=== PATIENT | male | born 1960 | race Caucasian/White ===

== ENCOUNTER 2020-12-21 16:02 | Observation (INO) | payer BC, SELFPAY ==
--- NOTE | ~2020-12-21 | CT_ITS ---
EXAMINATION: CT abdomen pelvis w con DATE: 12/21/2020 20:42 INDICATION: Jaundice. TECHNIQUE: Computed tomography (CT) of the abdomen and pelvis was performed with 100 mL Omnipaque 350 intravenous contrast. Automated exposure control and iterative reconstruction technique were employe d. The dose-length product was 396.95 mGy-cm. COMPARISON: None. FINDINGS: The visualized portions of the lung bases demonstrate mild atelectasis. No pleural effusion . The heart size is normal. No pericardial effusion. Paraesophageal varices are noted. The liver demo nstrates a nodular surface contour, consistent with cirrhosis. There is a paraumbilical portacaval sh unt. The gallbladder is normal in size. Gallbladder wall thickening is noted, likely secondary to chr onic liver disease and interstitial edema. There is splenomegaly measuring 17.6 cm. Calcifications in the spleen are consistent with old granulomatous disease. The pancreas, adrenal glands, and kidneys are normal. There are bilateral inguinal hernias containing fat. There are no dilated loops of bowel. There is mild wall thickening of some small bowel loops, likely interstitial edema. The appendix is normal. There is a large volume of ascites. There is mild periportal lymphadenopathy, likely reactive . There is severe lower lumbar spondylosis. IMPRESSION: 1. Cirrhosis of the liver with portal venous hypertension. 2. Large volume of ascites. Reviewed, dictated and finalized at location A.
[2020-12-21 19:23] VITALS: BP 142/77; PULSE 87; RESP 20; TEMP 36.3; O2SAT 94
[2020-12-21 19:46] LABS: Hematocrit 32.1 % (40.0-54.0); Hemoglobin 11.2 g/dL (14.0-18.0); Immature Platelet Fraction Pct 3.4 % (1.0-7.0); Mean Corpuscular HGB Conc 34.9 g/dL (32.0-36.0); Mean Corpuscular Hemoglobin 35.4 pg (27.0-31.0); Mean Corpuscular Volume 101.6 fL (78.0-102.0); Mean Platelet Volume 10.7 fl (8.7-11.0); Platelet Count Result 86 K/mm3 (150-420); Red Blood Count 3.16 M/mm3 (4.70-6.10); Red Cell Distribution Width 21.4 % (11.6-14.4); White Blood Count 7.6 K/mm3 (4.8-10.8)
[2020-12-21 19:57] LABS: Alanine Aminotransferase 50 U/L (16-63); Alkaline Phosphatase 153 U/L (46-116); Amylase 56 U/L (25-115); Anion Gap 12 mmol/L (8-16); Aspartate Amino Transferase 132 U/L (15-37); Bilirubin,Total 17.2 mg/dL (0.00-1.00); Blood Urea Nitrogen 20 mg/dL (7-18); Calcium 7.6 mg/dL (8.5-10.1); Carbon Dioxide 20 mmol/L (21-32); Chloride 102 mmol/L (98-108); Estimated CRCL calculation 92 ml/min; Estimated Glomerular Filt Rate > 60; Glucose 106 mg/dL (70-99); Lipase 266 U/L (73-393); Osmolality Calculated 280 mOsm/kg (285-295); Potassium 3.9 mmol/L (3.5-5.1)
[2020-12-21 19:59] LABS: Sodium 134 mmol/L (136-145)
[2020-12-21 20:02] LABS: Lactic Acid Reflex 1.5 mmol/L (0.4-2.0)
[2020-12-21 20:03] LABS: Band Neutrophils Percent 1 % (0-6); Basophils Percent Manual 0 % (0-1); Eosinophils Percent Manual 4 % (1-6); Lymphocytes Absolute Manual 1.52 K/mm3 (1.1-4.5); Lymphocytes Percent Manual 20 % (18-44); Monocytes Absolute Manual 1.44 K/mm3 (0.1-0.90); Monocytes Percent Manual 19 % (3-9); Neutrophils Absolute Manual 4.33 K/mm3 (1.3-6.7); Neutrophils Percent Manual 56 % (46-73); Platelet Estimate Decreased (Adequate); Total Cells Counted 100
--- NOTE | 2020-12-21 20:41 | ED.GENADULT ---
HPI - General Adult General Chief complaint: Abdominal Pain Stated complaint: Jandice and fatigue Time Seen by Provider: 12/21/20 19:20 Source: patient Mode of arrival: ambulatory Limitations: no limitations History of Present Illness HPI narrative: Patient comes in complains of being jaundiced. He states he has had some mild abdominal discomfort over the past few days. this has been dull and ongoing, not relieved by anything at home. Nothing known has precipitated this. It has been associated with constipation. According to the his complexion has been getting more and more yellow as time has gone on over several days, to the point now he is severely jaundiced. He has had associated poor appetite and itching. Onset (ago): day(s) Location: abdomen Radiation: non-radiation Severity: moderate Quality: dull, constant and other (mild) Pain Consistency: constant Relieving factors: none Exacerbating factors: none Associated symptoms: denies other symptoms Related Data Home Medications Medication Instructions Recorded Confirmed [id number]-[id number] 1 inh INHALATION DAILY 12/21/20 12/21/20 [Trelegy Ellipta] Allergies Allergy/AdvReac Type Severity Reaction Status Date / Time No Known Allergies Allergy Verified 12/21/20 19:22 Review of Systems Constitutional: Constitutional: Reports no additional constitutional complaints Eyes: Eyes: Reports no additional eye complaints ENT: Reports system reviewed and no additional complaints, except as documented Respiratory: Respiratory: Reports no additional respiratory complaints Gastrointestinal: Gastrointestinal: Reports no additional gastrointestinal complaints Genitourinary: Genitourinary: Reports no additional male genitourinary complaints Musculoskeletal: Musculoskeletal: Reports no additional musculoskeletal complaints Integumentary/Breasts: Skin/Breast: Reports system reviewed and no additional complaints, except as docu Neurologic: Reports system reviewed and no additional complaints, except as documented Psychiatric: Psychiatric: Reports no additional psychiatric complaints Endocrine: Endocrine: Reports no additional endocrine complaints Hematologic/Lymphatic: Hematologic/Lymphatic: Reports no additional hematologic/lymphatic complaints Allergic/Immunologic: Allergic/Immunologic: Reports no additional allergic/immunologic complaints [facility] Past Medical History Medical History (Updated 12/21/20 @ 22:27 by Reed Quinones MD) COPD (chronic obstructive pulmonary disease) Surgical History Surgical History (Updated 12/21/20 @ 20:45 by Reed Quinones MD) No significant past surgical history Family History Family History (Updated 12/21/20 @ 20:45 by Reed Quinones MD) Other Family history non-contributory Social History Social History (Updated 12/21/20 @ 20:50 by Reed Quinones MD) Smoking status: Former smoker Tobacco type: cigarettes Alcohol intake: current Alcohol use details: 12 pack beer per day Living arrangements: with family Gender identity (if verbalized by the patient): Male Sexual Orientation (if Verbalized by the Patient): Straight or Heterosexual Exam Const: General: no acute distress Orientation/consciousness: patient oriented x3 HENMT: Head: normal to inspection Ears: external ears normal and TM's normal bilaterally General nose exam: Normal external nose present Mouth: Yes Normal oral and palatal mucosa present Throat: posterior oropharynx normal Eyes: Other: jaundice noticed Neck: Neck: normal visual inspection and no lymphadenopathy Chest: Chest palpation & inspection: normal inspection of the chest Resp: Effort & Inspection: normal respiratory effort Auscultation: clear to auscultation bilaterally Cardio: Rate: regular rate Rhythm: regular rhythm GI: GI Palp: Yes Soft to palpation (nontender) Other: He appears to have at least some ascites present. Back/Spine/Pelvis:
[2020-12-21 21:02] LABS: Bilirubin Direct 11.8 mg/dL (0-0.2)
--- NOTE | 2020-12-21 22:30 | PC.NURSE ---
ERP discussed case c pt and family and will try to transfer to [facility]. 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
[2020-12-21 23:42] VITALS: BP 129/77; PULSE 75; RESP 20; TEMP 36.3; O2SAT 98
--- NOTE | 2020-12-22 00:19 | PC.NURSE ---
Pt. will be made ER Hold until bed is available for transfer to [facility]. Pt. has been accepted by Dr. Gabriel at [facility]. Call placed to 2nd floor and report given to UTE Damon Pt. going to Rm 203 until bed available at [facility].
[2020-12-22 00:45] VITALS: BP 132/73; PULSE 74; RESP 20; TEMP 36.8; O2SAT 95
--- NOTE | 2020-12-22 00:55 | PC.NURSE ---
Pt to 203B as an ER hold for services of the hospitalist. Pt is awaiting transfer to [facility] in [place], [place]. Pt is alert and oriented x4 and is ambulatory per self; Pt doesnt voice any c/o pain or discomfort or shortness of breath at this time. Side rails up x2 and call garcia within reach.
--- NOTE | 2020-12-22 01:30 | PC.NURSE ---
Pt's , Rosi Bacon, called and asked if her was in a room yet. She was given his room number and an update on his condition.
--- NOTE | 2020-12-22 02:10 | PC.NURSE ---
Pt asleep and no signs of discomfort noted.
--- NOTE | 2020-12-22 04:01 | PC.NURSE ---
Pt asleep and no signs of discomfort noted
--- NOTE | 2020-12-22 06:15 | PC.NURSE ---
Pt asleep and no signs of discomfort noted.
[2020-12-22 07:36] VITALS: BP 111/65; PULSE 89; RESP 16; TEMP 37.4; O2SAT 94
--- NOTE | 2020-12-22 07:38 | PC.NURSE ---
Patient resting comfortably in bed at this time. Vitals obtained and WNL except a low grade fever noted.
[2020-12-22 07:40] LABS: Add Urine Microscopic? YES; Appearance Urine Clear (Clear); Bilirubin Urine 3+ (Negative); Blood Urine Negative (Negative); Glucose Urine UA Trace (Negative); Ketones Urine Negative (Negative); Leukocyte Esterase Ur Negative LEU/UL (Negative); Nitrate Urine Negative (Negative); Protein Urine Negative (Negative); Specific Grav Ur 1.015 (1.010-1.020)
[2020-12-22 08:00] VITALS: BP 111/65; PULSE 89; RESP 16; TEMP 37.4; O2SAT 94
[2020-12-22 08:09] LABS: RBC Urine 0-2 /hpf (0-2); WBC Urine 0-3 /hpf (0-3)
[2020-12-22 08:10] LABS: Bacteria Urine 1+ /hpf; Color Urine Amber (Yellow); Squamous Epithelial Cell Urine Rare /hpf (Few)
--- NOTE | 2020-12-22 09:09 | PC.NURSE ---
UA has been obtained with abnormal results pending physicians review and new orders.
--- NOTE | 2020-12-22 10:35 | PCDIET ---
Patient admitted to observation bed from ER Hold.
[2020-12-22 10:36] VITALS: BMI 24.5
[2020-12-22 10:37] VITALS: PULSE 89; RESP 16; O2SAT 94
--- NOTE | 2020-12-22 10:40 | P.PNCROSS_ITS ---
Event Note Event Note Event Note: this is a 60-year-old male that was in ER hold overnight the patient was assessed this morning, apparently there is no beds available at [facility] in [place]. The patient appears stable his belly is soft with some abdominal pain is improved, with no nausea or vomiting no fever chills. Will change status to inpatient observation and orders given.
[2020-12-22 11:26] VITALS: PULSE 89
[2020-12-22] MEDS: METOPROLOL SUCCINATE EXT REL 25 MG TABCR PO (11:26)
[2020-12-22] MEDS: MULTIVITAMINS-12 INJ VIAL 1 5 ML, MULTIVITAMINS-12 INJ VIAL 2 5 ML in SODIUM CHLORIDE 0... 100 ML IV CONT (11:26)
[2020-12-22] MEDS: SPIRONOLACTONE 25 MG TABLET PO (11:27)
[2020-12-22] MEDS: THIAMINE HCL 100 MG TABLET PO (11:27)
[2020-12-22] MEDS: ENOXAPARIN 40 MG/0.4 ML SYRINGE SUB-Q (11:27)
[2020-12-22 13:16] LABS: Albumin Level 2.1 g/dL (3.4-5.0)
--- NOTE | 2020-12-22 14:51 | PM.SD2 ---
Same Day Admit/Disch: HPI History of Present Illness Chief complaint: ASCITES Narrative: Aydin Osoiro is a 60 year old male that presented to our ED with jaundice. Patient has a past medical history of COPD. According to family member patient skin color became yellow in approximately May. Patient does have a history of daily alcohol use according to patient he drinks 12 pack of beer a day. He has never been diagnosed with cirrhosis. Patient has not had any other symptoms. Patient notes that he has had a distended abdomen for quite some time now. Patient WBC 7.6, hemoglobin 11.2, hematocrit 32.1, platelets 86, sodium 134, potassium 3.9 BUN 20, creatinine 0.83 glucose 106, lactic acid 1.5 total bili 17.2, direct bili 11.8, AST 132, ALT 50 alkaline phosphatase 153, protein 6.0, albumin 2.0 amylase and lipase within normal limit. Temperature 99.3, 89, 16, 94% on room air, 111/65. CT of the abdomen indicate cirrhosis of the liver with portal venous hypertension and large volume of ascites. Ultrasound was ordered along with IR for diagnostic and therapeutic of ascites. Patient has been admitted from outside hospital he was being transferred there so that he can be consulted by GI for possible ERCP. patient is being transferred to [facility] per patient request. Patient did note that he had been experiencing shortness of breath for quite some time and was being treated for COPD possible cause of shortness of breath could possibly be ascites Disposition: Transfer to an acute hospital per family request [facility] Observation 60 minutes spent PMF Past Medical History Medical History (Updated 12/22/20 @ 15:06 by LIYAH Gooden) COPD (chronic obstructive pulmonary disease) Surgical History Surgical History (Updated 12/21/20 @ 20:45 by Reed Quinones MD) No significant past surgical history Family History Family History (Updated 12/21/20 @ 20:45 by Reed Quinones MD) Other Family history non-contributory Social History Social History (Updated 12/21/20 @ 20:50 by Reed Quinones MD) Smoking status: Former smoker Tobacco type: cigarettes and e-cigarettes/vaping Second hand tobacco smoke exposure: Yes Alcohol intake: current Drinks per week: 84 Alcohol use details: 12 pack beer per day Substance use: former Substance use type: marijuana Living arrangements: with family Gender identity (if verbalized by the patient): Male Sexual Orientation (if Verbalized by the Patient): Straight or Heterosexual Spiritual care concerns: No Same Day Admit/Disch: Med Pre-admit Medications Home Medications Medication Instructions Recorded Confirmed Type Tracie Hernández 1 inh INHALATION DAILY 12/21/20 12/21/20 History Exam Narrative: Exam Narrative: GENERAL: This is a well-nourished, well-developed patient, in no apparent distress. HEAD: normocephalic, atraumatic. EYES: PERRL. Sclera clear/white. Vision is grossly intact. EARS: External ears normal, auditory canals clear and without drainage, TMs normal without perforation. Hearing grossly intact. NOSE: External nose normal with no obvious nasal discharge, nares without redness, no rhinorrhea. THROAT: Mucous membranes moist, posterior pharynx clear. NECK: Neck supple, non-tender without lymphadenopathy, masses or thyromegaly. CARDIOVASCULAR: Regular rate and rhythm without murmurs, gallops, or rubs. RESPIRATORY: Clear to auscultation. Breath sounds equal bilaterally. No wheezes, rales, or rhonchi. GASTROINTESTINAL: Abdomen distended with fluid wave. Bowel sounds are active. No hepato-splenomegaly, or palpable masses. No guarding. SKIN: warm, intact with no suspicious lesions or rash, good texture and turgor. Generalized jaundice NEURO: awake, alert, and oriented to person, place and time. There were no obvious focal neurologic abnormalities. Steady gait EXTREMITIES: Normal range of motion. No edema. No calf t
[2020-12-22 15:28] LABS: SARS-CoV-2 Ag Negative (Negative)
--- NOTE | 2020-12-22 16:15 | PC.NURSE ---
Patient transported to [facility] by [facility] ambulance
[2020-12-24 19:46] LABS: Haptoglobin 23 mg/dL (43-212)
== END 2020-12-22 16:15 | disposition short-term general hospital (02) ==
LOC: CHSED 22:27 → CHS2ND 12-22 00:17 → CHSED 12-22 10:47 → CHS2ND 12-22 10:48
PROVIDERS: Admitting Provider Emergency Medicine; Emergency Provider Emergency Medicine; PCP Family Medicine; Visit Provider Nurse Practitioner
DX: K80.50 Calculus of bile duct without cholangitis or cholecystitis without obstruction (principal); K70.31 Alcoholic cirrhosis of liver with ascites; K76.6 Portal hypertension; J44.9 Chronic obstructive pulmonary disease, unspecified; Z72.89 Other problems related to lifestyle
CPT/HCPCS: 36415; 74177; 80053; 81001; 82040; 82150; 82248; 83010; 83605; 83690; 85025; 85055; 87040; 87426; 96365; 96366; 96372; 99285; A9270; C9803; G0378; G0379; J1650; J7030; Q9967

== ENCOUNTER 2021-11-17 08:58 | Emergency (ER) | payer BC, SELFPAY ==
[2021-11-17] VITALS (7 sets, daily range): BP systolic 120–125; BP diastolic 76–89; PULSE 64–80; RESP 16–20; TEMP 36.3–36.6; O2SAT 91–98
--- NOTE | ~2021-11-17 | CT_ITS ---
EXAMINATION: CT chest abdomen pelvis wo con DATE: 11/17/2021 10:34 INDICATION: Abdominal distention TECHNIQUE: Transaxial computed tomographic images of the chest, abdomen, and pelvis were obtained wit hout intravenous contrast. The dose-length product (DLP) was 1140.92 mGy-cm. Automated exposure contr ol and iterative reconstruction technique were employed. COMPARISON: 12/21/2020 FINDINGS: CHEST CT: There is mild emphysema. There is a 5 mm nodule of the right upper lobe. Multiple additional smaller nodules are identified which measure up to 4 mm. There is no pleural effusion or pneumothorax. Bilate ral gynecomastia is noted. No pathologically enlarged thoracic lymph nodes are identified. The heart size is normal. There is calcified coronary artery atherosclerosis. ABDOMEN/PELVIS CT: There is nodularity of the liver surface, consistent with cirrhosis. There is a large volume of abdom inal and pelvic ascites. Punctate calcifications in an otherwise normal spleen likely represent heale d granulomatous disease. The pancreas, gallbladder and adrenal glands are normal. Kidneys are unremar kable. Mild periportal lymphadenopathy is likely reactive. There is no free intraperitoneal gas or ev idence of bowel obstruction. There is mild lumbar spondylosis. There is a moderate size right inguina l hernia containing ascites. IMPRESSION: 1. Large volume of abdominal and pelvic ascites. 2. Cirrhosis. 3. Multiple nodules of the lungs measuring up to 5 mm. Consider follow-up CT in 12 months. Reviewed, dictated and finalized at location A.
--- NOTE | 2021-11-17 09:36 | ECG_ITS ---
Measurements Intervals [place] Rate: 67 P: 52 RI: 157 QRS: 7 QRSD: 94 T: 6 QT: 406 QTc: 431 Interpretive Statements SINUS RHYTHM BORDERLINE T WAVE ABNORMALITY- INFERIOR LEADS BASELINE ARTIFACT- I, II, III, AVR, AVL, V2 BORDERLINE ECG Electronically Signed On 11-17-2021 10:07:07 CDT by Trent Rider D.O.
[2021-11-17] MEDS: IPRATROPIUM 0.5 MG/ALBUTEROL SULFATE 2.5 MG AMPUL.NEB 3 ML INHALATION (09:57)
[2021-11-17] MEDS: methylPREDNISolone SOD SUCC 125 MG VIAL IV PUSH (10:02)
[2021-11-17] MEDS: FUROSEMIDE INJ 40 MG/4 ML VIAL 80 MG IV PUSH (10:03)
[2021-11-17 10:07] LABS: Base Excess ABG -2.1 mmol/L (0-2); HCO3 ABG 19.1 mmol/L (23-29); Oxygen Content ABG 17.9 %vol (16.0-22.0); Oxygen Saturation ABG 90.2 % (95-97); Oxyhemoglobin 89.5 % (94-100); PCO2 ABG 24.6 mmHg (35-45); PO2 ABG 58.9 mmHg (80-90); Total Hemoglobin 14.2 g/dL (12.0-18.0); pH ABG 7.51 (7.35-7.45)
[2021-11-17 10:08] LABS: Site Drawn LEFT RADIAL
--- NOTE | 2021-11-17 10:08 | ED.SOB ---
HPI - SOB/Dyspnea General Chief Complaint: Shortness of Breath/Dyspnea Stated Complaint: SOB Time Seen by Provider: 11/17/21 09:00 Source: patient and RN notes reviewed Mode of arrival: ambulatory Limitations: no limitations History of Present Illness MD elicited complaint: shortness of breath Pertinent past history: COPD and other (alcoholic liver cirrhosis with ascites.) Onset (ago): day(s) (1) Context: occurred during exertion Timing: constant Severity: mild (SOB especially on exertion.) Exacerbating factors: exertion Relieving factors: rest Known history of: COPD Associated symptoms: denies other symptoms Treatment prior to arrival: none Related Data Home oxygen amount: none Home Medications Medication Instructions Recorded Confirmed folic acid 1 mg tablet 1 mg PO DAILY 11/17/21 11/17/21 furosemide 40 mg tablet 40 mg PO QAM 11/17/21 11/17/21 garlic 1,000 mg capsule 1,000 mg PO DAILY 11/17/21 11/17/21 nadolol 20 mg tablet 20 mg PO ONCE 11/17/21 11/17/21 pantoprazole 40 mg tablet,delayed 40 mg PO BID tablet 11/17/21 11/17/21 release potassium 99 mg tablet 99 mg PO BID tablet 11/17/21 11/17/21 thiamine HCl (vitamin B1) 100 mg 50 mg PO DAILY 11/17/21 11/17/21 tablet Allergies Allergy/AdvReac Type Severity Reaction Status Date / Time No Known Allergies Allergy Verified 11/17/21 09:16 Review of Systems Review of Systems: All systems reviewed & are unremarkable except as noted in HPI and below PMFSH Past Medical History Medical History Cirrhosis COPD (chronic obstructive pulmonary disease) COPD (chronic obstructive pulmonary disease) Surgical History Surgical History No significant past surgical history Family History Family History Other Family history non-contributory Social History Social History Smoking status: Former smoker Tobacco type: cigarettes and e-cigarettes/vaping Second hand tobacco smoke exposure: Yes Additional smoking assessment comments: Currently Vapes. Quit cigarettes 2016. Aprox 40pk yr history Alcohol intake: former Drinks per week: 84 Alcohol use details: 12 pack beer per day. Quit alcohol October 2020. Substance use: former Substance use type: marijuana Exam Const: General: no acute distress and alert Nutritional Appearance: well nourished Orientation/consciousness: patient oriented x3 Limitations: no limitations HENMT: Head: normal to inspection Ears: external ears normal, TM's normal bilaterally and EAC's normal General nose exam: Normal external nose present and Normal nares present Face and sinus: normal facial exam and sinuses nontender Mouth: Yes moist mucous membranes Throat: posterior oropharynx normal Eyes: Conjunctivae: conjunctivae normal Pupils: Equal, round and reactive pupils present EOM: EOMs intact bilaterally Neck: Neck: normal visual inspection and no lymphadenopathy Chest: Chest palpation & inspection: normal inspection of the chest Resp: Effort & Inspection: normal respiratory effort Auscultation: rhonchi Cardio: Rate: regular rate Rhythm: regular rhythm GI: Inspection: distended GI Palp: Yes Soft to palpation and No Tenderness to palpation present (GI) Auscultation: normal bowel sounds (distant) : General: Yes bladder normal to palpation and Yes no CVA tenderness Male General Exam: Yes normal external exam Testes: Testes normal Back/Spine/Pelvis: Back: no CVA tenderness Skin: General skin exam: normal color and jaundice Rashes: no rashes Neuro: General: patient oriented x3, moves all extremities, no meningeal signs, no focal motor deficits and CN's II-XI intact bilaterally Extrem: General: normal to inspection and no pedal edema Psych: Mental Status: mental status grossly norm
[2021-11-17 10:09] LABS: Device ROOM AIR; Modified Allen's Test Pass
[2021-11-17 10:11] LABS: Basophils Absolute Auto 0.06 K/mm3 (0.00-0.10); Basophils Percent Auto 1.1 % (0.0-1.0); Eosinophils Absolute Auto 0.28 K/mm3 (0.02-0.50); Hematocrit 40.3 % (40.0-54.0); Hemoglobin 13.4 g/dL (14.0-18.0); Immature Granulocyte Absolute 0.01 K/mm3 (0.00-0.00); Immature Granulocyte Percent A 0.2 % (0.0-0.0); Immature Platelet Fraction Pct 2.9 % (1.0-7.0); Lymphocytes Absolute Auto 1.99 K/mm3 (1.10-4.50); Lymphocytes Percent Auto 35.3 % (18.0-42.0); Mean Corpuscular HGB Conc 33.3 g/dL (32.0-36.0); Mean Corpuscular Hemoglobin 33.4 pg (27.0-31.0); Mean Corpuscular Volume 100.5 fL (78.0-102.0); Mean Platelet Volume 10.9 fl (8.7-11.0); Neutrophils Absolute Auto 2.4 K/mm3 (1.7-7.2); Neutrophils Percent Auto 42.4 % (50.0-70.0); Platelet Count Result 76 K/mm3 (150-420); Red Blood Count 4.01 M/mm3 (4.70-6.10); Red Cell Distribution Width 16.8 % (11.6-14.4); White Blood Count 5.6 K/mm3 (4.8-10.8)
[2021-11-17 10:24] LABS: INR 1.4; Partial Thromboplastin Time 31.4 SEC (23.90-30.70); Prothrombin Time 14.6 Seconds (9.50-12.10)
[2021-11-17 10:37] LABS: Alanine Aminotransferase 105 U/L (16-63); Albumin Level 2.2 g/dL (3.4-5.0); Alkaline Phosphatase 146 U/L (46-116); Anion Gap 6 mmol/L (8-16); Aspartate Amino Transferase 192 U/L (15-37); Bilirubin,Total 6.1 mg/dL (0.00-1.00); Blood Urea Nitrogen 17 mg/dL (7-18); Calcium 7.8 mg/dL (8.5-10.1); Carbon Dioxide 24 mmol/L (21-32); Chloride 106 mmol/L (98-108); Estimated CRCL calculation 82 ml/min; Estimated Glomerular Filt Rate > 60; Glucose 94 mg/dL (70-99); Osmolality Calculated 283 mOsm/kg (285-295); Potassium 3.7 mmol/L (3.5-5.1); Sodium 136 mmol/L (136-145); Total Protein 5.9 g/dL (6.4-8.2)
[2021-11-17 10:39] LABS: NT Pro B Type Natriuretic Pept 63 pg/mL (0-125); Troponin I 9.9 ng/L (0.00-60.4)
[2021-11-17 10:45] LABS: Add Urine Microscopic? YES; Appearance Urine Clear (Clear); Bilirubin Urine Negative (Negative); Blood Urine Negative (Negative); Color Urine Yellow (Yellow); Glucose Urine UA Negative (Negative); Ketones Urine Negative (Negative); Leukocyte Esterase Ur Negative LEU/UL (Negative); Nitrate Urine Negative (Negative); Protein Urine Negative (Negative)
[2021-11-17 10:50] LABS: Bacteria Urine None seen /hpf; RBC Urine None seen /hpf (0-2); Squamous Epithelial Cell Urine Rare /hpf (Few); WBC Urine None seen /hpf (0-3)
[2021-11-17 10:54] LABS: Amphetamine Screen Urine Negative (Negative); Barbiturate Screen Urine Negative (Negative); Benzodiazepines Screen Urine Negative (Negative); Cannabinoid Screen Urine Negative (Negative); Cocaine Screen Urine Negative (Negative); Methadone Screen Urine Negative (Negative); Opiate Screen Urine Negative (Negative); Phencyclidine Screen Urine Negative (Negative)
--- NOTE | 2021-11-17 11:30 | PC.NURSE ---
resp even and non-labored at this time. no change in monitor pattern. family at bedside.
[2021-11-17] MEDS: CALCIUM CARBONATE (TUMS) 500 MG (200 MG ELEMENTAL) 1000 MG PO (13:13)
== END 2021-11-17 13:16 | disposition home or self-care (01) ==
PROVIDERS: Emergency Provider Emergency Medicine; PCP Family Medicine
DX: K70.31 Alcoholic cirrhosis of liver with ascites (principal); J44.1 Chronic obstructive pulmonary disease with (acute) exacerbation
CPT/HCPCS: 36415; 36600; 71250; 74176; 80053; 80307; 81001; 82805; 83735; 83880; 84484; 85025; 85055; 85610; 85730; 93005; 94640; 96374; 96375; 99284; A9270; J1940; J2930

== ENCOUNTER 2021-11-18 13:38 | Outpatient (CLI) | payer BC, SELFPAY ==
--- NOTE | ~2021-11-18 | US_ITS ---
US paracentesis abd w/image DATE: 11/18/2021 14:42 INDICATION: Ascites TECHNIQUE: The purpose of the procedure, technique and potential locations were discussed with the jag bird. The patient indicated understanding and gave consent. An appropriate site for percutaneous access was identified along the lateral left mid abdomen. The sk in was prepared with sterile Betadine solution. Sterile drape was applied. 1% lidocaine local anesthe tic was administered to the skin and underlying subcutaneous tissues. Single stick needle/catheter was introduced proxy 3 cm into the peritoneal cavity, with return of beni ar yellowish ascites at the needle hub. The catheter was then advanced over the needle and the needle withdrawn. Approximately 2.5 L was drained caliber of the catheter periodically became obstructed apparently by interfering to bowel. The technologist indicated that the catheter became withdrawn when she try to r eposition the patient for better drainage through the catheter. I then again cleaned the same area of the left lateral abdominal wall with sterile Betadine, readmini stered 1% lidocaine local anesthetic and introduced another single stick needle/catheter, again yield ing clear yellowish ascites the hub. The catheter was then advanced over the needle and the needle wi thdrawn. An additional 2.5 L of clear yellowish ascites was drained uneventfully. The patient tolerated the procedure well, without complaint or apparent complication. IMPRESSION: Percutaneous ultrasound-guided drainage of 5 L of clear yellowish ascites Reviewed, dictated and finalized at Location A. Reviewed, dictated and finalized at location A. IMPRESSION: Percutaneous ultrasound-guided drainage of 5 L of clear yellowish a scites
== END 2021-11-18 13:39 | disposition home or self-care (01) ==
LOC: CHSIMG 13:41
PROVIDERS: PCP Family Medicine; Visit Provider Emergency Medicine
DX: R18.8 Other ascites (principal)
CPT/HCPCS: 49083

== ENCOUNTER 2021-11-19 09:05 | Emergency (ER) | payer BC, SELFPAY ==
[2021-11-19] VITALS (57 sets, daily range): BP systolic 98–140; BP diastolic 66–90; PULSE 66–88; RESP 14–20; TEMP 36.1–36.4; O2SAT 97–100
--- NOTE | ~2021-11-19 | CT_ITS ---
EXAMINATION: CT brain wo con DATE: 11/19/2021 09:24 INDICATION: Unresponsive TECHNIQUE: Computed tomography (CT) of the head was performed without intravenous contrast. Sagittal and coronal reconstructions were performed. The mA was adjusted according to patient size. Iterative reconstruction technique was employed. The dose-length product was 681.00 mGy-cm. COMPARISON: None FINDINGS: No acute intracranial hemorrhage, acute infarction or abnormal extra axial fluid collection. Ventricl es are normal and symmetric. No mass/mass effect. The left maxillary sinuses small and completely opa cified suggesting sequela of chronic sinusitis. 1 mm step-off at the chronic appearing fracture of th e right nasal bone with no provided clinical history or overlying soft tissue swelling to suggest acu te injury. The orbits and mastoid air cells are normal. IMPRESSION: 1. Normal brain. No acute intracranial process. Reviewed, dictated and finalized at location A.
--- NOTE | ~2021-11-19 | XR_ITS ---
EXAMINATION: XR chest ET placement INDICATION: Endotracheal tube placement TECHNIQUE: Portable AP chest at 1036 hours COMPARISON: 1005 hours FINDINGS: An endotracheal tube ends approximately 3.1 cm above the corky. The lungs are free of acut e opacities. There is no pleural effusion or pneumothorax. The cardiomediastinal silhouette is normal . IMPRESSION: 1. Endotracheal tube approximately 3.1 cm above the corky. Reviewed, dictated and finalized at location B.
--- NOTE | ~2021-11-19 | XR_ITS ---
EXAMINATION: XR chest ET placement DATE: 11/19/2021 09:47 INDICATION: Endotracheal tube placement. TECHNIQUE: frontal view of the chest was obtained. COMPARISON: Chest radiograph dated 11/19/2021 FINDINGS: Endotracheal tube with inflated bulb projecting to the left of the trachea likely within the esophagu s with the distal tip at the level of the thoracic inlet. Lungs are clear with no focal airspace opac ities, pulmonary edema, pleural effusion or pneumothorax. The cardiomediastinal silhouette is normal. Visualized bones and soft tissues are unremarkable. IMPRESSION: 1. Endotracheal tube tip at the level of the thoracic inlet to the left the trachea likely within the esophagus. Per discussion with the nurse in the ED department the tube has already been withdrawn an d is in the process of being replaced. 2. No acute cardiopulmonary disease. Reviewed, dictated and finalized at location A. IMPRESSION: 1. Endotracheal tube tip at the level of the thoracic inlet to the left the tra sridevi likely within the esophagus. Per discussion with the nurse in the ED depar tment the tube has already been withdrawn and is in the process of being replac ed. 2. No acute cardiopulmonary disease.
--- NOTE | ~2021-11-19 | XR_ITS ---
EXAMINATION: XR chest 1V portable INDICATION: Altered mental status TECHNIQUE: Portable AP chest at 0931 hours COMPARISON: None available FINDINGS: The lungs are free of acute opacities. There is no pleural effusion or pneumothorax. The ca rdiomediastinal silhouette is normal. IMPRESSION: 1. No acute cardiopulmonary abnormality. Reviewed, dictated and finalized at location B.
--- NOTE | ~2021-11-19 | XR_ITS ---
EXAMINATION: XR chest ET placement, XR abdomen NG/feed tube insert DATE: 11/19/2021 10:08 INDICATION: Endotracheal tube and nasogastric tube placement TECHNIQUE: 1. Interval AP view of the chest was obtained. 2. Portable AP view of the abdomen was obtained. COMPARISON: Chest radiograph dated 11/19/2021 at 9:48 AM FINDINGS: Chest: The trachea is visualized to the region of normal subglottic narrowing with no visualized endotrachea l tube. Mild streaky opacities in the medial left lower lung zone. No pulmonary edema, pleural effusi on or pneumothorax. Cardiomediastinal silhouette is normal. Abdomen: Nasogastric tube with tip in proximal side port in the body of the stomach. There are multiple gas-f illed but not frankly dilated loops of large and small bowel in the visualized abdomen. IMPRESSION: 1. No endotracheal tube visualized. Per discussion with the nurse, poor tidal volumes are being obtai mitchel via the tube and would recommend withdrawal and repositioning. 2. Nasogastric tube in expected position within the stomach. 3. Opacities in the medial left lower lung zone which could represent atelectasis, aspiration or pneu monia. Reviewed, dictated and finalized at location A. IMPRESSION: 1. No endotracheal tube visualized. Per discussion with the nurse, poor tidal v olumes are being obtained via the tube and would recommend withdrawal and repos itioning. 2. Nasogastric tube in expected position within the stomach. 3. Opacities in the medial left lower lung zone which could represent atelectas is, aspiration or pneumonia.
[2021-11-19] MEDS: NALOXONE HCL INJ 2 MG/2 ML AMP IV PUSH (09:10)
--- NOTE | 2021-11-19 09:14 | ECG_ITS ---
Measurements Intervals [place] Rate: 79 P: 75 TN: 157 QRS: 49 QRSD: 106 T: 47 QT: 387 QTc: 446 Interpretive Statements SINUS RHYTHM BASELINE ARTIFACT- III, V1, V3 NORMAL ECG Electronically Signed On 11-19-2021 12:34:45 CDT by Trent Rider D.O.
[2021-11-19 09:20] LABS: Base Excess ABG -1.9 mmol/L (0-2); HCO3 ABG 19.7 mmol/L (23-29); Oxygen Content ABG 18.9 %vol (16.0-22.0); Oxygen Saturation ABG 93.2 % (95-97); Oxyhemoglobin 92.5 % (94-100); PCO2 ABG 26.1 mmHg (35-45); PO2 ABG 68.6 mmHg (80-90); Total Hemoglobin 14.5 g/dL (12.0-18.0)
[2021-11-19 09:22] LABS: Modified Allen's Test Pass; Site Drawn RIGHT RADIAL
[2021-11-19 09:23] LABS: Device NASAL CANNULA
[2021-11-19 09:28] LABS: Basophils Absolute Auto 0.03 K/mm3 (0.00-0.10); Basophils Percent Auto 0.4 % (0.0-1.0); Eosinophils Absolute Auto 0.18 K/mm3 (0.02-0.50); Eosinophils Percent Auto 2.4 % (1.0-6.0); Hematocrit 41.6 % (40.0-54.0); Hemoglobin 13.5 g/dL (14.0-18.0); Immature Granulocyte Absolute 0.03 K/mm3 (0.00-0.00); Immature Granulocyte Percent A 0.4 % (0.0-0.0); Immature Platelet Fraction Pct 3.6 % (1.0-7.0); Lymphocytes Absolute Auto 2.18 K/mm3 (1.10-4.50); Lymphocytes Percent Auto 29.4 % (18.0-42.0); Mean Corpuscular HGB Conc 32.5 g/dL (32.0-36.0); Mean Corpuscular Hemoglobin 33.1 pg (27.0-31.0); Mean Platelet Volume 10.9 fl (8.7-11.0); Monocytes Absolute Auto 0.85 K/mm3 (0.10-0.90); Monocytes Percent Auto 11.5 % (2.0-11.0); Neutrophils Absolute Auto 4.1 K/mm3 (1.7-7.2); Neutrophils Percent Auto 55.9 % (50.0-70.0); Platelet Count Result 81 K/mm3 (150-420); Red Blood Count 4.08 M/mm3 (4.70-6.10)
--- NOTE | 2021-11-19 09:30 | PC.NURSE ---
prior to arrival, patient's blood glucose was 76. patient was adnimistered a 250ml bag d10. patient's mental status didnt change with fluids.
[2021-11-19 09:35] LABS: White Blood Count 7.4 K/mm3 (4.8-10.8)
[2021-11-19 09:36] LABS: INR 1.5; Prothrombin Time 15.3 Seconds (9.50-12.10)
[2021-11-19] MEDS: ETOMIDATE 20 MG/10 ML AMPUL (09:36)
[2021-11-19] MEDS: SUCCINYLCHOLINE CHLORIDE 200 MG/10 ML SYRINGE ×3 (09:36→11:35)
[2021-11-19 09:40] LABS: Lactic Acid Reflex 2.2 mmol/L (0.4-2.0)
[2021-11-19] MEDS: SODIUM CHLORIDE 0.9% IV 1,000 ML 999 ML IV CONT ×2 (09:40→13:13)
[2021-11-19 09:47] LABS: Alanine Aminotransferase 88 U/L (16-63); Albumin Level 2.1 g/dL (3.4-5.0); Alkaline Phosphatase 133 U/L (46-116); Ammonia 48 umol/L (11-32); Anion Gap 7 mmol/L (8-16); Aspartate Amino Transferase 133 U/L (15-37); Bilirubin,Total 4.4 mg/dL (0.00-1.00); Blood Urea Nitrogen 21 mg/dL (7-18); Calcium 7.7 mg/dL (8.5-10.1); Carbon Dioxide 23 mmol/L (21-32); Chloride 106 mmol/L (98-108); Creatine Kinase 109 U/L (39-308); Estimated Glomerular Filt Rate > 60; Glucose 183 mg/dL (70-99); Osmolality Calculated 290 mOsm/kg (285-295); Potassium 4.3 mmol/L (3.5-5.1); Sodium 136 mmol/L (136-145); Thyroid Stimulating Hormone 3.29 uIU/mL (0.36-3.74); Total Protein 5.7 g/dL (6.4-8.2); Troponin I 9.7 ng/L (0.00-60.4)
[2021-11-19 09:48] LABS: Ethanol < 3 mg/dL (0-6)
[2021-11-19] MEDS: MIDAZOLAM HCL (*CRX) 2 MG/2 ML VIAL 4 MG (09:58)
[2021-11-19] MEDS: MIDAZOLAM 100MG/NS 100ML(*CRX) 100 MG/100 ML BAG IV CONT (10:05)
--- NOTE | 2021-11-19 10:32 | ED.AMS ---
HPI - Altered Mental Status General Chief Complaint: Unspecified Stated Complaint: AMBULANCE Source: EMS Limitations: altered mental status History of Present Illness HPI narrative: this is a 60-year-old gentleman with a history of alcoholic cirrhosis, and was recently tapped and removed about 500cc of abdominal fluid with a radiology guided paracentesis. EMS was called earlier this morning with patient being unresponsive, according to family has not been compliant with his lactulose. Currently there is no nausea or vomiting, had a sternal rub. The patient initially vital signs stable satting at 98 to 100% on room air but with some unresponsiveness. according to family there is no other significant past medical history. Again according to family has not consumed alcohol. According to his chart the patient has a history of COPD. MD complaint: altered mental status and decreased responsiveness Onset (ago): hour(s) Timing confirmed by: family member Severity: severe Consistency of symptoms: constant Context: unknown Related Data Home Medications Medication Instructions Recorded Confirmed folic acid 1 mg tablet 1 mg PO DAILY 11/17/21 11/19/21 furosemide 40 mg tablet 40 mg PO QAM 11/17/21 11/19/21 garlic 1,000 mg capsule 1,000 mg PO DAILY 11/17/21 11/19/21 nadolol 20 mg tablet 20 mg PO ONCE 11/17/21 11/19/21 pantoprazole 40 mg tablet,delayed 40 mg PO BID tablet 11/17/21 11/19/21 release potassium 99 mg tablet 99 mg PO BID tablet 11/17/21 11/19/21 thiamine HCl (vitamin B1) 100 mg 50 mg PO DAILY 11/17/21 11/19/21 tablet Allergies Allergy/AdvReac Type Severity Reaction Status Date / Time No Known Allergies Allergy Verified 11/19/21 11:56 Review of Systems Review of Systems: All systems reviewed & are unremarkable except as noted in HPI and below PMFSH Past Medical History Medical History Cirrhosis COPD (chronic obstructive pulmonary disease) COPD (chronic obstructive pulmonary disease) Surgical History Surgical History No significant past surgical history Family History Family History Other Family history non-contributory Social History Social History Tobacco type: cigarettes and e-cigarettes/vaping Second hand tobacco smoke exposure: Yes Additional smoking assessment comments: Currently Vapes. Quit cigarettes 2017. Aprox 40pk yr history Alcohol intake: former Drinks per week: 84 Alcohol use details: 12 pack beer per day. Quit alcohol October 2020. Substance use: former Substance use type: marijuana Exam Const: General: ill appearing Limitations: altered mental status HENMT: Head: hematoma Eyes: Pupils: Equal, round and reactive pupils present Neck: Neck: normal visual inspection Chest: Chest palpation & inspection: normal inspection of the chest Resp: Effort & Inspection: normal respiratory effort Cardio: Rate: regular rate Rhythm: regular rhythm GI: GI Palp: Yes Soft to palpation Percussion: Yes other ( Distended) Skin: General skin exam: normal color Rashes: no rashes Neuro: Speech: Abnormal speech present Extrem: General: no pedal edema Course Course Emergency Course: patient is unresponsive IV line was placed patient started on IV fluids the patient had glass calc coma scale of approximately 8 and patient having difficulty protecting his airway and intubation was performed. The patient received etomidate 20 and succinylcholine 8 120, patient intubated using a 7 and half CC at about 22cm at the teeth and currently on Versed. Labs reviewed with family. spoke to [facility] in [place] with no available ICU beds as well as [facility] with no available ICU beds, spoke to invertebrate paleontologist at [facility] and have
--- NOTE | 2021-11-19 11:00 | PC.NURSE ---
Addendum entered by Eun Cannon RN 11/19/21 13:47: 1100 18f cornejo catheter placed, per dr megn. Urine return noted. Original Note: 1100
[2021-11-19 11:02] LABS: Base Excess ABG -5.4 mmol/L (0-2); HCO3 ABG 19.1 mmol/L (23-29); Oxygen Content ABG 19.1 %vol (16.0-22.0); Oxygen Saturation ABG 93.6 % (95-97); Oxyhemoglobin 93.1 % (94-100); PCO2 ABG 34.4 mmHg (35-45); PO2 ABG 77.2 mmHg (80-90); Total Hemoglobin 14.6 g/dL (12.0-18.0); pH ABG 7.36 (7.35-7.45)
[2021-11-19 11:03] LABS: Device VENTILATOR; Fractional Inspired Oxygen 100 %; Modified Allen's Test Pass; Site Drawn RIGHT RADIAL
[2021-11-19 11:11] LABS: Arterial Blood Gas PEEP 5 cmH2O; Arterial Blood Gas Tidal Volume 500 ml; Arterial Blood Gas Vent Mode ASSIST CONTROL; Arterial Blood Gas Ventilator rate 12 /MIN; Peak Inspiratory Pressure 15 cmH2O
[2021-11-19 12:18] LABS: Reflex Lactic Acid Yes or No Add Lactic
--- NOTE | 2021-11-19 12:23 | PC.NURSE ---
0910 2mg narcan administered, no change in patient mental status 0930 patient returned to room from ct. 0936 20 mg etomodate, 120 mc succinylcholine 0937 intubation, 7.5 tube. 0945 tube pulled 0951 intubated 7.0 tube 0954 tube adjusted 0958 4mg versed iv push 1005 versed drip 5mg/hr 1011 versed increased to 7mg/hr 1018 tube pulled 1020 versed increased to 10mg/hr 1023 100mg succinylcholine 1027 intubated 7.5 25 @ Lip 1041 versed increased to 12mg/hr per dr meng 1049 versed increased to 15mg/hr per dr meng 1052 versed increased to 20mg/hr per dr meng 1056 versed increased to 30mg/hr per dr meng 1135 100mg succinylcholine 1215 100mg succinylcholine
[2021-11-19 12:31] LABS: Appearance Urine Clear (Clear); Bilirubin Urine Negative (Negative); Color Urine Yellow (Yellow); Glucose Urine UA Negative (Negative); Ketones Urine Negative (Negative); Leukocyte Esterase Ur Negative (Negative); Nitrate Urine Negative (Negative); Protein Urine Negative (Negative); Specific Grav Ur 1.015 (1.010-1.020)
[2021-11-19 12:38] LABS: Add Urine Microscopic? YES; Blood Urine Trace-Intact (Negative); WBC Urine 0-3 /hpf (0-3)
[2021-11-19 12:39] LABS: Bacteria Urine None seen /hpf; Squamous Epithelial Cell Urine Rare /hpf (Few)
[2021-11-19] MEDS: ALBUMIN HUMAN 25% 25 GM/100 ML 100 ML IVPB (12:40)
[2021-11-19 13:06] LABS: Lactic Acid 1.7 mmol/L (0.4-2.0)
[2021-11-19] MEDS: fentaNYL CITRATE INJ (*CRX) 100 MCG/2 ML VIAL IV PUSH (13:09)
== END 2021-11-19 14:24 | disposition short-term general hospital (02) ==
PROVIDERS: Emergency Provider Emergency Medicine; PCP Family Medicine
DX: G93.40 Encephalopathy, unspecified (principal); J44.9 Chronic obstructive pulmonary disease, unspecified; K74.60 Unspecified cirrhosis of liver
CPT/HCPCS: 31500; 36415; 36600; 70450; 71045; 80053; 80307; 81001; 82140; 82550; 82805; 83605; 84443; 84484; 85025; 85055; 85610; 85730; 87040; 93005; 96361; 96365; 96375; 99285; J0330; J2250; J2310; J3010; J7030; J7120; P9047